=== PATIENT | male | born 1945 | race Caucasian/White ===

== ENCOUNTER 2018-10-17 06:00 | Inpatient (IN) ==
--- NOTE | 2018-10-13 16:09 | PAT Medication Instructions ---
Medication Instructions Date of Service October 13, 2018 Home Medications atorvastatin 10 mg PO HS thiamine HCl (vitamin B1) 100 mg PO DAILY DO NOT take the morning of surgery thiamine HCl (vitamin B1) 100 mg PO DAILY Take evening before surgery atorvastatin 10 mg PO HS *THEN NOTHING TO EAT OR DRINK AFTER MIDNIGHT* Other Notes If you have any questions please call us at [phone] or [phone] or [phone] or [phone]
--- NOTE | 2018-10-14 13:06 | Anesthesiology Consultation ---
Date of Service October 14, 2018 Assessment & Plan (1) Encounter for pre-operative examination: *Check CONFIRMED EKG ([facility] 10/04), EKG still not officially confirmed at time of clearance. Chart Review Chart Review: Acceptable Risk for Surgery and Patient seen in Pre Admission Testing Consults Requested none Teaching & Discussion Instructed NPO after midnight before surgery, except medications with 15 cc of water. Medication instructions provided according to the PAT guidelines. History Surgery Operation Date: 10/17/18 07:45 Proposed Procedures p C5 Corpectomy, C4-C6 Anterior Cervical Discectomy and Fusion, Spinal Cord Monitoring - Arias Sutton, Height/Weight Height: 5 ft 10 in Weight: 82.8 kg Allergies Allergy/AdvReac Type Severity Reaction Status Date / Time aspirin Allergy Intermediate HIVES, RASH Verified 10/17/18 06:25 Sulfa (Sulfonamide Allergy Intermediate HIVES,RASH Verified 10/17/18 06:25 Antibiotics) NSAIDS (Non-Steroidal Allergy Mild Rash Verified 10/17/18 06:25 Anti-Inflamma Medications Home Medications Medication Instructions Recorded Confirmed Last Taken atorvastatin 10 mg PO HS 10/13/18 10/17/18 10/16/18 21:00 thiamine HCl (vitamin B1) [Vitamin 100 mg PO DAILY 10/13/18 10/17/18 10/16/18 21:00 B-1] Active Medications Generic Name Dose Route Start Last Admin Trade Name Freq PRN Reason Stop Dose Admin Acetaminophen 1,000 mg 10/17/18 06:00 10/17/18 06:53 Tylenol PO 10/17/18 18:00 1,000 mg PREOP VITALY Administration Gabapentin 300 mg 10/17/18 06:00 10/17/18 06:53 Neurontin PO 10/17/18 18:00 300 mg PREOP VITALY Administration Lactated Ringer's 1,000 mls @ 15 mls/hr 10/17/18 06:00 10/17/18 06:53 Lr IV 10/18/18 05:59 15 mls/hr .Q24H VITALY Administration Past Medical History Medical History Cancer PROSTATE CANCER -- S/P PROSTATECTOMY 2015 Cervical spinal stenosis Hyperlipidemia Osteoarthritis 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) Exercise / Class Metabolic Activity II 4-5 Yardwork/Stairs/Walk up hill Past Surgical History Surgical History History of arthroscopy RIGHT KNEE X2 LEFT KNEE X1 History of colonoscopy History of endoscopic sinus surgery NASAL POLYPS History of herniorrhaphy RIGHT INGUINAL History of radical prostatectomy History of tonsillectomy Past Anesthesia History No Hx of Anesthesia Complications and No Family Hx of Anesthesia Complications History of PONV No Hx of PONV, No Family Hx of PONV and No Hx of Motion Sickness Social History Smoking Status: Current every day smoker tobacco type: cigarettes Smoking cigarettes per day: 1 PPD Do You Dip or Chew Tobacco: No Hx Alcohol Use: Yes Alcohol type: wine and hard liquor alcohol intake frequency: a few times a month Hx Substance Use: No substance use type: does not use Review of Systems Pt denies any recent chest pain, shortness of breath, palpitations, cough, fever or URI. Physical Exam Vital Signs Last Vital Signs Temp 36.5 C 10/17/18 06:27 Pulse 64 10/17/18 06:27 Resp 18 10/17/18 06:27 BP 121/72 10/17/18 06:27 Pulse Ox 99 10/17/18 06:27 BP: 132/80 P: 68bpm SPO2: 99% RA T: 97.8 F R: 12 ENMT Mouth: + dental restorations (one crown on molar); no chipped teeth and no loose teeth Thyromental Distance: > or= 3.5 Finger Breadths (3.5) Mallampati Class: II Neck normal visual inspection; neck extension not limited Respiratory normal respiratory effort Auscultation: lungs clear to auscultation bilaterally and + diminished lung sounds (B/L) Cardiovascular Rate/Rhythm: regular rate and regular rhythm Heart Sounds: no murmur Vessels: no carotid bruit Extremities: no edema Testing Electrocardiogram Date: 10/14/18 Findings: + NSR @ (64) Chest X-Ray Date: 10/14/18 Findings: + NAD Laboratory Results 10/14/18 13:15 10/14/18 13:15 Blood Type O Positive 10/14/18 13:15 Antibody Screen NEGATIVE 10/14/18 13:15 PT 10.3 Seconds (9.0-12.0) 10/14/18 13:15 INR 1.0 (0.9-1.1) 10/14/18 13:15 APTT 29.0 Seconds (21.0-31.0) 10/14/18 13:15 Urine Color Yellow 10/14/18 Unknown Urine Appearance Clear (Clear) 10/14/18 Unknown Urine pH 5.0 (4.5-7.5) 10/14/18 Unknown Ur Specific Clements 1.023 (1.000-1.030) 10/14/18 Unknown Urine Protein Negative (Negative) 10/14/18 Unknown Urine Glucose (UA) Negative (Negative) 10/14/18 Unknown Urine Ketones Trace (Negative) H 10/14/18 Unknown Urine Nitrite Negative (Negative) 10/14/18 Unknown Ur Leukocyte Esterase Negative (Negative) 10/14/18 Unknown 10/14/18 Unknown Urine Culture - Final Urine,Clean Catch No growth - less than 1,000 colonies/mL.
--- NOTE | 2018-10-14 13:55 | XRay Report ---
XR chest Pre-admission PA/Lat HISTORY: 73 years-old Male pat preoperative exam. No acute chest complaints COMPARISON: None available TECHNIQUE: PA and lateral views of the chest FINDINGS: Cardiomediastinal and hilar silhouettes are within normal limits. Calcification of the thoracic aorti c arch. There is no pneumothorax, pleural effusion, focal airspace consolidation or overt pulmonary e ileana. Lungs appear mildly hyperinflated. Bones of the chest appear grossly intact. IMPRESSION: No acute process. The above report was generated using voice recognition software. It may contain grammatical, syntax o r spelling errors. Electronically signed by: Carlos Russell M.D. 10/14/2018 1:54 PM
[2018-10-14 14:17] LABS: Appearance Urine Clear (Clear); Bilirubin Urine Negative (Negative); Blood Urine Negative (Negative); Color Urine Yellow; Glucose Urine UA Negative (Negative); Ketones Urine Trace (Negative); Leukocyte Esterase Urine Negative (Negative); Nitrite Urine Negative (Negative); Protein Urine Negative (Negative); Specific Gravity Urine 1.023 (1.000-1.030); Urobilinogen Urine Negative (Negative)
[2018-10-14 14:17] LABS: Basophils # (auto) 0.03 K/uL (0-0.2); Basophils % (auto) 0.4 %; Eosinophils # (auto) 0.29 K/uL (0-0.5); Eosinophils % (auto) 3.5 %; Hematocrit (blood only) 42.6 % (42-52); Hemoglobin 14.6 g/dL (14.0-18.0); Immature Granulocytes # (auto) 0.01 K/uL (0.00-0.02); Immature Granulocytes % (auto) 0.1 %; Lymphocytes # (auto) 2.89 K/uL (1.2-3.4); Lymphocytes % (auto) 34.5 %; Mean Corpuscular Hgb Conc 34.3 g/dL (32-36); Mean Corpuscular Volume 96.4 fL (80-100); Mean Platelet Volume 11.4 fL (7.4-10.4); Monocytes # (auto) 0.47 K/uL (0.11-0.59); Monocytes % (auto) 5.6 %; Neutrophils # (auto) 4.69 K/uL (1.4-6.5); Neutrophils % (auto) 55.9 %; Platelet Count 191 K/uL (130-400); RDW Coefficient of Variation 11.8 % (11.5-14.5); RDW Standard Deviation 41.7 fL (36.4-46.3); Red Blood Count 4.42 M/uL (4.7-6.1); White Blood Count 8.38 K/uL (4.8-10.8)
[2018-10-14 14:27] LABS: Partial Thromboplastin Ratio 1.1; Prothrombin Time 10.3 Seconds (9.0-12.0)
[2018-10-14 14:59] LABS: BUN Creatinine Ratio 20.8 (10-20); Creatinine Clr Calc Pharmacy 72.9 ml/min; Est GFR (African American) 91.8; Est GFR (Non-African American) 79.2; Potassium 4.7 mmol/L (3.5-5.1)
[~2018-10-17 06:00] MED LIST: ACETAMINOPHEN 500 MG TAB PO SCH; CEFAZOLIN 2000MG 2,000 MG/15 ML SYR IV SCH; GABAPENTIN 300 MG PO SCH; LR 15ML/HR IV SCH
[2018-10-17] MEDS ORDERED: fentaNYL citrate 100 MCG/2 ML VIAL ONE ×4 (06:37→09:22)
[2018-10-17] MEDS ORDERED: MIDAZOLAM HCL 1 MG/ML 2ML VIAL ONE (06:37)
[2018-10-17] MEDS ORDERED: HYDROmorphone INJ 2 MG/ML SYR/VIAL ONE (06:37)
[2018-10-17] MEDS ORDERED: DEXAMETHASONE SOD INJ 4 MG/ML VIAL ONE (06:38)
[2018-10-17] MEDS ORDERED: LIDOCAINE HCL 2% 2 ML VIAL/AMP(20MG/ML) INFIL ONE (06:38)
[2018-10-17] MEDS ORDERED: ONDANSETRON INJ 2 MG/ML 2 ML VIAL ONE (06:38)
[2018-10-17] MEDS ORDERED: PROPOFOL IV EMULSION 10 MG/ML 20 ML VIAL IV ONE (06:38)
[2018-10-17] MEDS ORDERED: GLYCOPYRROLATE 0.2 MG/ML VIAL ONE (06:38)
[2018-10-17] MEDS ORDERED: ROCURONIUM BROMIDE 10 MG/ML 5 ML VIAL ONE (06:38)
[2018-10-17] MEDS ORDERED: NEOSTIGMINE METHYLSULFATE 1 MG/ML 10ML VIAL ONE (06:38)
[2018-10-17] MEDS ORDERED: BACITRACIN INJ 50,000 UNIT VIAL ONE (07:06)
--- NOTE | 2018-10-17 07:34 | History & Physical Bridge Note ---
Date of Service October 17, 2018 History & Physical Bridge Note I have examined the patient, reviewed the History & Physical and in the interval since the performance of the History & Physical I have noted the following changes of clinical significance: no changes noted
[2018-10-17] MEDS ORDERED: PROPOFOL IV EMULSION 10 MG/ML 100 ML VIAL IV ONE (07:36)
--- NOTE | 2018-10-17 07:36 | History & Physical Report ---
Date of Service October 17, 2018 Assessment & Plan (1) Cervical stenosis of spinal canal: Corpectomy C5 fusion C4-C6 Present on Admission?: Yes History of Present Illness Chief Complaint: Neck and arm pain Primary Care Provider: abel coronel Persistent neck and arm pain failed extensive course of nonoperative care and here for surgical intervention. Allergies Allergy/AdvReac Type Severity Reaction Status Date / Time aspirin Allergy Intermediate HIVES, RASH Verified 10/17/18 06:25 Sulfa (Sulfonamide Allergy Intermediate HIVES,RASH Verified 10/17/18 06:25 Antibiotics) NSAIDS (Non-Steroidal Allergy Mild Rash Verified 10/17/18 06:25 Anti-Inflamma Home Medications Home Medications Medication Instructions Recorded Confirmed Type atorvastatin 10 mg PO HS 10/13/18 10/17/18 History thiamine HCl (vitamin B1) [Vitamin 100 mg PO DAILY 10/13/18 10/17/18 History B-1] Past Med/Surg History Medical History Cancer PROSTATE CANCER -- S/P PROSTATECTOMY 2015 Cervical spinal stenosis Hyperlipidemia Osteoarthritis 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) Surgical History History of arthroscopy RIGHT KNEE X2 LEFT KNEE X1 History of colonoscopy History of endoscopic sinus surgery NASAL POLYPS History of herniorrhaphy RIGHT INGUINAL History of radical prostatectomy History of tonsillectomy Social History Preferred Language: Icelandic Communication Ability: Effective Copy Center Specialist Required: No Beliefs That Will Affect Care: Mu-Ism Mu-Ism Beliefs: GNOSTICISM Current Living Situation: Alone Other Information That Helps Us Care for You: No Feels Safe at Home: Yes Safety Concerns: Feels Safe At This Time Smoking Status: Current every day smoker Tobacco Type: cigarettes Cigarettes Per Day: 1 PPD Do You Dip or Chew Tobacco: No Second Hand Exposure: No Tobacco Cessation Education Requested by Patient: No Hx Alcohol Use: Yes Alcohol type: wine and hard liquor Hx Substance Use: No Physical Exam Vital Signs (Past 24 Hours): Last Vital Signs Temp 36.5 C 10/17/18 06:27 Pulse 64 10/17/18 06:27 Resp 18 10/17/18 06:27 BP 121/72 10/17/18 06:27 Pulse Ox 99 10/17/18 06:27
[2018-10-17] MEDS ORDERED: PROMETHAZINE HCL 6.25 MG in SODIUM CHLORIDE 0.9% 50 ML IV PRN (07:37)
[2018-10-17] MEDS ORDERED: fentaNYL citrate 100 MCG/2 ML VIAL IV PRN (07:37)
[2018-10-17] MEDS ORDERED: ePHEDrine sulfate 50 MG/ML AMP IV PRN (07:37)
[2018-10-17] MEDS ORDERED: ATROPINE SULFATE 0.1 MG/ML 10ML SYR IV PRN (07:37)
[2018-10-17] MEDS ORDERED: HYDROmorphone INJ 2 MG/ML SYR/VIAL IV PRN (07:37)
[2018-10-17] MEDS ORDERED: ONDANSETRON INJ 2 MG/ML 2 ML VIAL IV PRN ×2 (07:37→11:14)
[2018-10-17] MEDS ORDERED: LARYING-O-JET KIT (LTA) ONE (08:23)
[2018-10-17] MEDS ORDERED: SODIUM CHLORIDE 0.9% INJ 10 ML VIAL ONE (08:24)
[2018-10-17] MEDS ORDERED: SUCCINYLCHOLINE CHLORIDE 20 MG/ML 10 ML VIAL ONE (08:46)
[2018-10-17] MEDS ORDERED: ePHEDrine sulfate 50 MG/ML SYR ONE (08:46)
[2018-10-17] MEDS ORDERED: PHENYLEPHRINE 100MCG/ML 5ML SYR ONE (08:46)
[2018-10-17] MEDS ORDERED: FLOSEAL HEMOSTATIC MATRIX 10ML TOP ONE (09:23)
--- NOTE | 2018-10-17 09:35 | Operative Report ---
Post Operative Report Pre & Post Diagnosis Operation Date: 10/17/18 07:45 Pre-Op Diagnosis: Cervical spinal stenosis with myeloradiculopathy Post-Op Diagnosis: Same Procedure Operation Date: 10/17/18 07:45 Actual Procedures #1 anterior cervical corpectomy bilateral foraminotomies C5. #2 anterior cervical arthrodesis C4-C6. #3 please repeat cage 23 mm in height C4-C6. #4 placement of globus plate and screws from C4-C6. #5 placement of locally harvested morselized autograft combined with DBM in the interbody cage. Surgeon Arias Sutton, Postdoctoral Fellow Etienne Rowell Estimated Blood Loss 10 Findings See Below Specimens None Indications This is a 73-year-old male who presents with evidence of myelopathy and radiculopathy. After failing a course of nonoperative care he like to undergo the above-mentioned procedure. Description of Procedure Patient was met with preoperatively case discussed all questions addressed. At that point patient was taken back to the operative suite and after undergoing successful intubation placed in a supine position the Yoel table with a Townsend head of music. All bony prominences well-padded eyes inspected to ensure no external pressure placed upon the peer at this point the anterior cervical spine was prepped and draped in the normal sterile fashion. The assistance of fluoroscopy identified the C5 vertebral body and a transverse incision was placed along the right anterior aspect of the cervical spine overlying this region. Sharp dissection with the assistance of bipolar cautery was performed down to and exposing the anterior cervical spine from C4-C6. Self-retaining retractors placed. I verified my position with fluoroscopy. Then performed a complete discectomy C4-5 out to the uncovertebral joints bilaterally called by C5-6. Pennock distracting pins were then placed in C4 and C6 to distract across the C5 vertebral body. A complete corpectomy was then performed including removal of all posterior annular fibers longitudinal ligament bilateral foraminotomies. Endplates were then burred to subcortical bleeding bone and a 23 mm peek cage filled with locally harvested morselized autograft and DBM tapped in position. Distraction apparatus was removed and a gandara plate and screws applied with the assistance of fluoroscopy. Incision was then copiously irrigated and explored to ensure no damage to surrounding structures remaining bleeding. 10 round JUDY drain inserted. Incision was then closed with 2 Vicryl in a fashion for Monocryl for Fransen closure Steri-Strip sterile dressing placed. Patient awakened and taken to PACU in stable condition. Please note Etienne sosa present throughout the entire procedure involved in patient positioning complex portions of the surgery and final skin closure. Lastly intraoperative neuro monitoring was utilized throughout the procedure and no changes were noted. I attest to the content of the Intraoperative Record and any orders documented therein. Any exceptions are noted below.
[2018-10-17] MEDS ORDERED: ESMOLOL HCL INJ 10 MG/ML 10ML VIAL IV ONE (09:51)
--- NOTE | 2018-10-17 10:35 | Fluoroscopy Report ---
Cervical SPINE, INTRAOPERATIVE FLUOROSCOPY HISTORY: C4 C6 ACDF. FLUOROSCOPY TIME: 13 seconds. FINDINGS: Intraoperative fluoroscopy was provided for the cervical spine. 2 fluoroscopic spot images were obtained. Anterior cervical discectomy and fusion from C4 through C6 with C5 corpectomy and bone graft. The hardware appears intact. IMPRESSION: Fluoroscopy provided for a C4-C6 ACDF. Electronically signed by: Karthik Oconnell M.D. 10/17/2018 10:34 AM
--- NOTE | 2018-10-17 10:38 | Anesthesiology Progress Note ---
Date of Service October 17, 2018 Anesthesia Post Procedure Vital Signs Vital Signs: Temp Pulse Pulse Resp BP BP Pulse Ox 10/17/18 10:35 73 16 175/91 H 100 10/17/18 10:25 62 16 173/93 H 99 10/17/18 10:15 61 16 167/97 H 100 10/17/18 10:05 66 16 165/99 H 100 10/17/18 09:55 64 14 168/96 H 100 10/17/18 09:47 36.0 C L 71 14 163/106 H 98 10/17/18 06:27 36.5 C 64 18 121/72 99 Transfer of Care Handoff Completed per policy Notes Mental Status: alert / awake / arousable Patient Amnestic to Procedure: Yes Nausea / Vomiting: adequately controlled Pain: adequately controlled Airway Patency, RR, SpO2: stable & adequate BP & HR: stable & adequate Hydration State: stable & adequate Anesthetic Complications: no major complications apparent
[2018-10-17] MEDS ORDERED: OXYCODONE HCL IR 5 MG TAB (IMMEDIATE RELEASE) PO PRN (11:14)
[2018-10-17] MEDS ORDERED: LORazepam 0.5 MG TAB PO PRN (11:14)
[2018-10-17] MEDS ORDERED: DEXAMETHASONE SOD PHOSPHATE 8 MG in SYRINGE 0 ML IV PRN (11:14)
[2018-10-17] MEDS ORDERED: DO NOT ADMINISTER PNEUMOCOCCAL VACCINE PRN (11:14)
[2018-10-17] MEDS ORDERED: HYDROmorphone INJ 0.5 MG/0.5 ML SYR IV PRN (11:14)
[2018-10-17] MEDS ORDERED: MAGNESIUM HYDROXIDE SUSP 30 ML UDC PO PRN (11:14)
[2018-10-17] MEDS ORDERED: NALOXONE HCL 0.4 MG/1 ML VIAL/CARP IV PRN (11:14)
[2018-10-17] MEDS ORDERED: SODIUM CHLORIDE 0.9% 1000ML 1,000 ML IV SCH (11:14)
[2018-10-17] MEDS ORDERED: DO NOT ADMINISTER FLU VACCINE PRN (11:14)
[2018-10-17] MEDS ORDERED: LORazepam 0.5 MG/1 ML VIAL IV PRN (11:14)
[2018-10-17] MEDS ORDERED: DiphenhydrAMINE HCL 50 MG/ML VIAL IV PRN (11:14)
[2018-10-17] MEDS ORDERED: ACETAMINOPHEN 1,000 MG/100 ML VIAL IV PRN (11:14)
[2018-10-17] MEDS ORDERED: RACEPINEPHRINE 2.25% NEBU SOLN 0.5 ML VIAL INH PRN (11:14)
[2018-10-17] MEDS ORDERED: SCOPOLAMINE 1.5 MG TDSY TD SCH (12:00)
[2018-10-17] MEDS: CHECK SCOPOLAMINE PATCH PLACEMENT SCH (16:14)
[2018-10-17] MEDS: CEFAZOLIN 2000MG 2,000 MG/15 ML SYR IV SCH ×2 (16:14→22:40)
[2018-10-17] MEDS: DOCUSATE SODIUM 100 MG CAP PO SCH (20:28)
[2018-10-17] MEDS ORDERED: ATORVASTATIN 10 MG TAB PO SCH (21:00)
[2018-10-18] MEDS: CEFAZOLIN 2000MG 2,000 MG/15 ML SYR IV SCH (06:33)
[2018-10-18] MEDS: CHECK SCOPOLAMINE PATCH PLACEMENT SCH ×2 (08:24)
[2018-10-18] MEDS: DOCUSATE SODIUM 100 MG CAP PO SCH (08:26)
[2018-10-18] MEDS ORDERED: THIAMINE HCL 100 MG TAB PO SCH (09:00)
--- NOTE | 2018-10-18 11:04 | Anesthesiology Progress Note ---
Date of Service October 18, 2018 Anesthesia Post Procedure Vital Signs Vital Signs: Temp Pulse Pulse Pulse Resp BP Pulse Ox 10/18/18 10:05 36.6 C 69 16 127/79 96 10/18/18 08:05 36.5 C 71 16 128/79 96 10/18/18 07:46 82 12 93 10/18/18 06:08 36.5 C 98 H 16 133/81 95 10/18/18 04:02 36.6 C 67 16 129/80 98 10/18/18 03:36 62 14 98 10/18/18 02:09 36.5 C 67 16 122/76 98 10/18/18 00:01 36.6 C 71 16 146/85 H 98 10/17/18 23:35 84 14 98 10/17/18 22:05 36.9 C 82 18 135/82 99 10/17/18 20:05 36.6 C 82 16 137/76 100 10/17/18 18:05 36.5 C 89 16 130/81 98 10/17/18 16:05 36.5 C 67 16 142/81 H 98 10/17/18 15:02 90 16 98 10/17/18 14:05 36.4 C L 63 18 130/83 100 10/17/18 13:05 36.5 C 85 16 134/85 99 10/17/18 12:05 36.4 C L 66 18 135/83 100 10/17/18 11:35 36.3 C L 70 16 151/84 H 100 10/17/18 11:24 68 20 100 10/17/18 11:05 36.4 C L 68 16 155/93 H 100
--- NOTE | 2018-10-18 11:07 | Anesthesiology Progress Note ---
Date of Service October 18, 2018 Assessment & Plan (1) Encounter for pre-operative examination: Review of Systems Review of Systems: All systems reviewed & are unremarkable except as noted in HPI & below Physical Exam 2 Vital Signs: Last Vital Signs Temp 36.6 C 10/18/18 10:05 Pulse 69 10/18/18 10:05 Resp 16 10/18/18 10:05 BP 127/79 10/18/18 10:05 Pulse Ox 96 10/18/18 10:05 Results & Data Medications Administered Atorvastatin Calcium (Lipitor) 10 mg PO HS VITALY Stop: 11/16/18 20:59 Last Admin: 10/17/18 20:28 Dose: 10 mg Documented by: [id number] Docusate Sodium (Colace) 100 mg PO BID VITALY Stop: 11/16/18 20:59 Last Admin: 10/18/18 08:26 Dose: 100 mg Documented by: [id number] Admin: 10/17/18 20:28 Dose: 100 mg Documented by: [id number] Miscellaneous (Check Scopolamine Patch Placement) 1 ea N/A QS VITALY Stop: 11/16/18 15:59 Last Admin: 10/18/18 08:24 Dose: Not Given Documented by: [id number] Admin: 10/18/18 00:00 Dose: Not Given Documented by: [id number] Admin: 10/17/18 16:14 Dose: Not Given Documented by: [id number] Scopolamine (Transderm-Scop) 1.5 mg TD Q72H VITALY Stop: 11/16/18 11:59 Last Admin: 10/17/18 13:50 Dose: Not Given Documented by: [id number] Thiamine HCl (Vitamin B-1) 100 mg PO DAILY VITALY Stop: 11/17/18 08:59 Last Admin: 10/18/18 08:26 Dose: 100 mg Documented by: [id number]
--- NOTE | 2018-10-18 11:07 | Anesthesiology Progress Note ---
Date of Service October 18, 2018 Physical Exam Vital Signs: Last Vital Signs Temp 36.6 C 10/18/18 10:05 Pulse 69 10/18/18 10:05 Resp 16 10/18/18 10:05 BP 127/79 10/18/18 10:05 Pulse Ox 96 10/18/18 10:05 Results & Data Medications Administered Atorvastatin Calcium (Lipitor) 10 mg PO HS [facility] Stop: 11/16/18 20:59 Last Admin: 10/17/18 20:28 Dose: 10 mg Documented by: [id number] Docusate Sodium (Colace) 100 mg PO BID VITALY Stop: 11/16/18 20:59 Last Admin: 10/18/18 08:26 Dose: 100 mg Documented by: [id number] Admin: 10/17/18 20:28 Dose: 100 mg Documented by: [id number] Miscellaneous (Check Scopolamine Patch Placement) 1 ea N/A QS [facility] Stop: 11/16/18 15:59 Last Admin: 10/18/18 08:24 Dose: Not Given Documented by: [id number] Admin: 10/18/18 00:00 Dose: Not Given Documented by: [id number] Admin: 10/17/18 16:14 Dose: Not Given Documented by: [id number] Scopolamine (Transderm-Scop) 1.5 mg TD Q72H [facility] Stop: 11/16/18 11:59 Last Admin: 10/17/18 13:50 Dose: Not Given Documented by: [id number] Thiamine HCl (Vitamin B-1) 100 mg PO DAILY [facility] Stop: 11/17/18 08:59 Last Admin: 10/18/18 08:26 Dose: 100 mg Documented by: [id number]
--- NOTE | 2018-10-18 11:17 | Discharge Summary ---
Date of Service October 18, 2018 Admission HPI Per Admitting Provider Persistent neck and arm pain failed extensive course of nonoperative care and here for surgical intervention. Principal Diagnosis Cervical spinal stenosis with myelopathy Discharge Data Allergies Allergy/AdvReac Type Severity Reaction Status Date / Time aspirin Allergy Intermediate HIVES, RASH Verified 10/17/18 06:25 Sulfa (Sulfonamide Allergy Intermediate HIVES,RASH Verified 10/17/18 06:25 Antibiotics) NSAIDS (Non-Steroidal Allergy Mild Rash Verified 10/17/18 06:25 Anti-Inflamma Procedures Performed Operation Date: 10/17/18 07:45 Actual Procedures p C5 Corpectomy, C4-C6 Anterior Cervical Discectomy and Fusion, Spinal Cord Monitoring(Not Applicable) - Arias Sutton DO Ordered Studies 10/17/18 07:45 FL cervical 2-3V Routine FL fluoroscopy <1hr Routine Hospital Course (1) Cervical stenosis of spinal canal: Patient underwent anterior cervical corpectomy tolerated this well was taken to the orthopedic floor postoperative. Postop day #1 he denied hoarseness swallowing well. Arm symptoms and leg symptoms stable. Ambulating nicely. Subsequent discharge home. Discharge orders and instructions found in the chart for further review. Total Time Total Time Spent Total Time Spent (In Minutes): 20 minutes Discharge Plan Discharge Items Patient Disposition: Home - Self-Care Reason For Visit: Radiculopathy, Cervical Region Discharge Diagnosis: cervical stenosis Discharge Goals: Improve function Activity: Per 'Additional Instructions' section Non-emergency contact: Primary Care Provider Call non-emergency contact if: you have any medication questions Follow-up/Referrals: abel coronel [Other] Diet: Regular Addtl Provider Instructions: ACTIVITY RECOMMENDATIONS: SELF CARE INSTRUCTIONS AFTER CERVICAL FUSIONS 1. No smoking. Smoking drastically decreases the chance of a solid fusion. 2. No bending, lifting more than 5 pounds, or twisting (roll like a log when turning in bed). 3. You may shower 3 days after surgery. Thoroughly dry wound. Do not soak in the tub. 4. Cervical collar: Must be worn at all times including sleeping. You may remove the brace only to bath, eat and if you are sitting in a recliner. 5. Please walk as much as you can for exercise. Gradually increase the distance that you walk as your endurance increases. SPECIAL CARE INSTRUCTIONS: VERY IMPORTANT TO READ AND REVIEW A. Do not take any anti-inflammatory medications (i.e. Indocin, Advil, Aspirin, Naprosyn, Aleve, Motrin, etc.) as these may inhibit the chance of a solid fusion. Tylenol is okay to take. B. Your surgical incision has been closed with a cosmetic suture under the skin that will dissolve in about 6 weeks. In 14 days, you can use a pair of clean scissors and cut the suture that is left outside of the skin at the ends of your incision. C. Complications are uncommon, but please contact us if you have any signs or symptoms of: 1. wound infection (fever higher than 102.5 degrees F, redness, separation of wound, drainage, or increasing pain from the incision) 2. blood clots in legs (pain, swelling, redness and warmth in legs) 3. urinary tract infection (fever higher than 102.5 degrees, burning upon urination or increased frequency of urination) 4. nerve problems (inability to walk on your toes or heels, numbness, loss of bowel or bladder control) 5. any other symptoms that concern you. D. Please call the office at if you have any concerns or questions about your operation or recovery. MANAGING PAIN AFTER SPINAL SURGERY 1. Narcotic medication is intended for short-term use and will be provided for surgical pain. Surgical pain usually lasts for a period of 4-6 weeks. Narcotic medication includes Percocet, Vicodin, Darvocet, Tylenol #3 or Lortab. 2. Longer-term pain is more appropriately treated with non-narcotic medication such as Tylenol ES. 3. Muscle spasm is not appropriately treated with narcotics. Muscle relaxers such as Soma, Flexeril or Skelaxin can be used along with Tylenol ES. 4. Remember that we all live with some "aches and pains". This is not unusual or uncommon after an injury or as we get older. 5. We will provide appropriate medication within the normal guidelines of their prescribed use. We will also be very cautious and aware of potential abuse and extended duration of patients' medication needs. 6. Please allow 2-3 days to process refills. Prescriptions will not be mailed but must be picked up at the office. FOLLOW UP VISIT: Keep your scheduled follow-up appointment. Any questions, please call the office at . Prescriptions: New oxycodone 5 mg Tablet 5 mg PO Q4H PRN (Reason: Pain, Moderate) Qty: 20 RF: 0 Continued atorvastatin 10 mg Tablet 10 mg PO HS RF: 0 thiamine HCl (vitamin B1) [Vitamin B-1] 100 mg Tablet 100 mg PO DAILY RF: 0 Stand-Alone Forms: [facility] Discharge Orders: Discharge Order (Routine); Ordered 10/18/18 Ordered By: Arias Sutton Admission Data Admit Date/Time: 10/17/18 09:38 Attending Provider: Arias Sutton Admit Provider: Arias Sutton Service: Surgical Services
[2018-10-19] MEDS ORDERED: BISACODYL 5 MG TABEC PO PRN (09:38)
--- NOTE | 2018-11-20 08:05 | Anesthesiology Progress Note ---
Date of Service November 20, 2018 Assessment & Plan (1) Encounter for pre-operative examination: Physical Exam Vital Signs: Last Vital Signs Temp 36.6 C 10/18/18 12:00 Pulse 78 10/18/18 12:00 Resp 14 10/18/18 12:00 BP 127/79 10/18/18 12:00 Pulse Ox 98 10/18/18 12:00
== END 2018-10-18 12:19 | disposition home or self-care (01) | DRG 472 ==
LOC: ASU 06:00 → 3E 09:38
DX: M54.12 Radiculopathy, cervical region; Z96.0 Presence of urogenital implants; E78.5 Hyperlipidemia, unspecified; G99.2 Myelopathy in diseases classified elsewhere; M19.90 Unspecified osteoarthritis, unspecified site; Z79.899 Other long term (current) drug therapy; M48.02 Spinal stenosis, cervical region; Z88.6 Allergy status to analgesic agent; N36.42 Intrinsic sphincter deficiency (ISD); Z88.2 Allergy status to sulfonamides; F17.210 Nicotine dependence, cigarettes, uncomplicated